=== PATIENT | male | born 1985 | race Caucasian/White ===

== ENCOUNTER 2020-07-01 08:47 | Emergency (ER) | payer BC ==
[~2020-07-01] VITALS: Ht 193 cm; Wt 117.9 kg
--- NOTE | 2020-07-01 08:47 | NUR ---
Placed in room 1. Placed on building construction inspector, blood pressure machine and pulse oximeter. To gown for exam. Side rails up. Report given to MYAH Quinonez.
[2020-07-01 08:49] VITALS: BP_SYST 142
--- NOTE | 2020-07-01 08:50 | NUR ---
PRESENTS TO ER STATING "I THINK I'M HAVING A HEART ATTACK", REPORTS CHEST PAIN WITH A HX OF SVT. REPORTS PAIN ON CHEST WELL TINGLING DOWN LEFT ARM. V/S STABLE AAOX4
--- NOTE | 2020-07-01 08:53 | NUR ---
DR. MACK AT BEDSIDE
--- NOTE | 2020-07-01 08:55 | NUR ---
# 18 gauge angiocath placed to LAC. Use of asceptic technique. Opsite placed over site. Blood return noted. Blood for lab drawn from site. Flushed with 10 cc of normal saline. No evidence of infiltration noted. Patient tolerated well.
--- NOTE | 2020-07-01 08:56 | NUR ---
BLOOD LABS DRAWN AND TAKEN TO LAB
--- NOTE | 2020-07-01 08:59 | NUR ---
XR at the bedside
[2020-07-01] MEDS ORDERED: ASPIRIN 81 MG TAB.CHEW PO ONE (09:00)
--- NOTE | 2020-07-01 09:04 | NUR ---
PT MEDICATED WITH ASA, TOLERATED WELL
--- NOTE | 2020-07-01 09:12 | NUR ---
PT ABLE TO VOID, URINE COLLECTED AND TAKEN TO LAB
[2020-07-01 09:49] LABS: BILIRUBIN,URINE NEGATIVE (NEGATIVE); BLOOD, URINE NEGATIVE (NEGATIVE); CLARITY/URINE CLEAR (CLEAR); COLOR,URINE YELLOW (YELLOW); GLUCOSE,URINE NEGATIVE (NEGATIVE); KETONES,URINE NEGATIVE (NEGATIVE); LEUKOCYTE ESTERASE ,URINE NEGATIVE (NEGATIVE); NITRITE, URINE NEGATIVE (NEGATIVE); PROTEIN URINE NEGATIVE (NEGATIVE); UROBILINOGEN,URINE 0.2 (0.2-1.0)
[2020-07-01 09:49] LABS: CALCIUM 9.3 mg/dL (8.4-11.0); CREATININE 1.1 mg/dL (0.55-1.30); POTASSIUM 3.1 mmol/L (3.5-5.1)
[2020-07-01 09:54] LABS: BASOPHILS # (AUTO) 0.2 K/uL (0.0-0.2); EOSINOPHILS # (AUTO) 0.3 K/uL (0.0-0.4); EOSINOPHILS % (AUTO) 3.6 % (0.0-4.0); HEMATOCRIT 44.4 % (36-54); HEMOGLOBIN 14.7 g/dL (14.0-18.0); LYMPHOCYTES # (AUTO) 1.8 K/uL (1.0-5.5); LYMPHOCYTES % (AUTO) 23.6 % (20.5-51.5); MEAN CORPUSCULAR HEMOGLOBIN 30 pg (27-31); MEAN CORPUSCULAR HGB CONC 33 % (32-36); MEAN CORPUSCULAR VOLUME 91 fL (79.0-98.0); MONOCYTES # (AUTO) 0.7 K/uL (0.0-1.0); MONOCYTES % (AUTO) 9.6 % (1.7-9.3); NEUTROPHILS # (AUTO) 4.6 K/uL (1.8-7.7); NEUTROPHILS % (AUTO) 60.2 % (40.0-70.0); PLATELET COUNT (AUTO) 285 K/uL (130-430); PROTHROMBIN TIME 10.3 SECS (9.5-12.5); RED BLOOD CELL COUNT(AUTO) 4.89 MIL/uL (4.2-6.2); RED CELL DISTRIBUTION WIDTH 12.8 % (9.0-15.0); WHITE BLOOD COUNT (AUTO) 7.6 K/uL (4.8-10.8)
[2020-07-01 09:55] LABS: ALBUMIN 4.2 g/dL (3.4-4.8); TOTAL BILIRUBIN 0.3 mg/dL (0.0-1.0)
[2020-07-01] MEDS ORDERED: POTASSIUM CHLORIDE 20 MEQ TAB.PRT.SR PO ONE (10:30)
[2020-07-01 10:45] VITALS: BP_SYST 142
== END 2020-07-01 10:45 | disposition home or self-care (01) ==
LOC: SED 08:47
DX: R07.89 Other chest pain (principal)
CPT/HCPCS: 36415; 71045; 80053; 81003; 83880; 84484; 85025; 85610-TC; 85730-TC; 93005; 99285